=== PATIENT | female | born 1950 | race Caucasian/White ===

== ENCOUNTER → 2022-09-25 | Outpatient (CLI) | payer MEDICARE ==
[~2022-09-25] VITALS: Ht 170 cm; Wt 75.0 kg
[~2022-09-25] MED LIST: AC325T PO; ASPI-875 PO; CALC-787 PO; CATHETER FLUSH 10 ML SYR IVP PRN; CRB200T PO; GARL5000 PO; LORA10CA PO; LUTE10TA PO; MULT-963 PO; NIAC250T17 PO; OMG1KC PO; RED600TA PO; ROSU5TAB PO
[2022-09-25 09:03] VITALS: BP 155/76
--- NOTE | 2022-09-25 11:26 | Cardiology Stress Test Report ---
Stress Test Report Date of Procedure/Referring: Date of Procedure: Sep 25, 2022 PCP Temi Palma MD Admitting Physician Admitting Physician: Attending Physician: Keiry Young MD Baseline Heart Rate: 64 Baseline Blood Pressure: Blood Pressure Systolic: 155 Blood Pressure Diastolic: 76 Vital Signs Date Time Temp Pulse Resp B/P (MAP) Pulse Ox O2 Delivery O2 Flow Rate FiO2 09/25/22 09:03 74 155/76 (102) Baseline Vital Signs Vital Signs Date Time Temp Pulse Resp B/P (MAP) Pulse Ox O2 Delivery O2 Flow Rate FiO2 09/25/22 09:03 74 155/76 (102) Baseline EKG: Baseline EKG: NSR Summary: After explaining the procedure and details to the patient, she signed the consent and was brought to the stress nuclear laboratory. Patient exercised on standard Reymundo protocol, EKG, heart rate and blood pressure were monitored continuously, resting and stress doses of radio tracer were injected, imaging was acquired and reviewed in the short axis, horizontal long axis and vertical long axis views Patient was able to exercise for a total of 10.30 minutes on Reymundo protocol, METs 11.7 Maximum heart rate 117 Maximum blood pressure 134/82 Stress EKG, Minimal nondiagnostic changes Recovery EKG, Return to baseline TID: 1.07 SSS: 7 SDS: 7 EF: 75 Conclusion: 1. Excellent exercise tolerance for 10 minutes and 30 seconds on standard Reymundo protocol, 11.7 METS achieving 81% of maximum expected heart rate 2. Appropriate heart rate and blood pressure response to exercise return to baseline during recovery 3. Nondiagnostic EKG changes with exercise return to baseline during recovery 4. Breast attenuation affecting the quality of the images with questionable ischemia involving the mid to apical anterior wall and anterolateral wall 5. Normal left ventricular size, ejection fraction 75% Copy Copies To 1: TEMI PALMA MD, BASHAR J MD Sep 25, 2022 11:26
== END ==
LOC: CARD 08:15
PROVIDERS: ATTEND Internal Medicine Cardiovascular Disease
DX: I34.0 Nonrheumatic mitral (valve) insufficiency (principal); I10 Essential (primary) hypertension; I25.10 Atherosclerotic heart disease of native coronary artery without angina pectoris
CPT/HCPCS: 78452; 93017; A9502; C8929; 93306

== ENCOUNTER 2022-10-11 07:38 | Day surgery (SDC) | payer MEDICARE ==
[2022-10-11] VITALS (11 sets, daily range): BP systolic 116–161; BP diastolic 61–84
[~2022-10-11] VITALS: Ht 170 cm; Wt 75.5 kg
[~2022-10-11 07:38] MED LIST changes: -CATHETER FLUSH 10 ML SYR IVP PRN
[2022-10-11] MEDS ORDERED: LIDOCAINE 1% INJ 30 ML (XYLOCAINE) VIAL ONE (07:54)
[2022-10-11] MEDS ORDERED: NS IV 1000 ML 1,000 ML ONE (07:54)
[2022-10-11] MEDS ORDERED: HEParin (CATH LAB) 2,000 ML IV ONE (07:54)
[2022-10-11] MEDS ORDERED: NS IV 1000 ML 1,000 ML IV ONE (08:00)
--- NOTE | 2022-10-11 08:41 | Diagnostic Imaging Report ---
Indication: Coronary artery disease. Single AP view of the chest is obtained. There is mild cardiomegaly. Pulmonary vascularity is unremarkable. There is no evidence of pneumothorax or consolidation. Asymmetric density in the upper right hemithorax appears to be due to 1st rib sclerosis. IMPRESSION: Mild cardiomegaly without definite acute abnormality. Consideration could be given to apical lordotic view to assess the right lung apex. Dictated by: Dictated on workstation # [id number]
[2022-10-11 08:54] LABS: HEMATOCRIT 46 % (35-52); HEMOGLOBIN 15.4 g/dL (11.5-16.0); MEAN CORPUSCULAR HEMOGLOBIN 30 pg (25-34); MEAN CORPUSCULAR HGB CONC 34 g/dL (32-36); MEAN CORPUSCULAR VOLUME 90 fL (80-99); MEAN PLATELET VOLUME 9.4 fL (9.0-12.2); PLATELET COUNT 282 10^3/uL (130-400); WHITE BLOOD COUNT 10.6 10^3/uL (4.3-11.0)
[2022-10-11 08:57] LABS: BILIRUBIN,URINE NEGATIVE (NEGATIVE); CLARITY,URINE CLEAR; COLOR,URINE YELLOW; GLUCOSE, URINE (UA) NEGATIVE (NEGATIVE); KETONES,URINE NEGATIVE (NEGATIVE); LEUKOCYTE ESTERASE ,URINE 1+ (NEGATIVE); NITRITE,URINE NEGATIVE (NEGATIVE); PH,URINE 6.5 (5-9); PROTEIN,URINE NEGATIVE (NEGATIVE)
[2022-10-11 09:07] LABS: BACTERIA,URINE NEGATIVE /HPF; WBC,URINE RARE /HPF
[2022-10-11 09:09] LABS: INR 0.9 (0.8-1.4); PROTHROMBIN TIME PATIENT 12.1 SEC (12.2-14.7)
[2022-10-11 09:15] LABS: ALBUMIN 4.5 GM/DL (3.2-4.5); BILIRUBIN,TOTAL 0.3 MG/DL (0.1-1.0); CALCIUM 9.2 MG/DL (8.5-10.1); CREATININE SERUM 0.84 MG/DL (0.60-1.30); TOTAL PROTEIN 7.1 GM/DL (6.4-8.2)
[2022-10-11] MEDS ORDERED: CALC-823 PO (09:16)
[2022-10-11] MEDS ORDERED: ACET325T38 PO (09:16)
[2022-10-11] MEDS ORDERED: CYAN-41 PO (09:16)
[2022-10-11] MEDS ORDERED: CARB200T6 PO (09:16)
[2022-10-11] MEDS ORDERED: ASCO-262 PO (09:16)
[2022-10-11] MEDS ORDERED: L.AC1CAP6 PO (09:16)
[2022-10-11] MEDS ORDERED: OMEG100032 PO (09:16)
[2022-10-11] MEDS ORDERED: ROSU5TAB13 PO (09:16)
[2022-10-11] MEDS ORDERED: ALEN70TA80 PO (09:16)
[2022-10-11] MEDS ORDERED: AMLO-251 PO (09:16)
[2022-10-11] MEDS ORDERED: ASPI-1238 PO (09:16)
[2022-10-11] MEDS ORDERED: MULT-1136 PO (09:16)
[2022-10-11] MEDS ORDERED: GARL500C2 PO (09:16)
[2022-10-11] MEDS ORDERED: CALC-250 PO (09:16)
[2022-10-11] MEDS ORDERED: VIT1CAPS40 PO (09:16)
[2022-10-11] MEDS ORDERED: NITRO DRIP 25000 MCG/D5W 0 ML IV ONE (10:12)
[2022-10-11] MEDS ORDERED: HEParin 1000 UNIT/ML (10ML VIAL) FOR BOLUS ONE (10:12)
[2022-10-11] MEDS ORDERED: MIDAZOLAM 5 MG/5 ML (VERSED) VIAL ONE (10:12)
[2022-10-11] MEDS ORDERED: fentaNYL INJ 100 MCG/2 ML AMP ONE (10:12)
[2022-10-11] MEDS ORDERED: VERAPAMIL 5 MG/2 ML (CALAN) VIAL IV ONE (10:12)
--- NOTE | 2022-10-11 10:13 | Cardiac Procedure Note-CS/ASA ---
Pre-Procedure Note Pre-Op Procedure Note Date of Available H&P: Oct 03, 2022 Date H&P Reviewed: Oct 11, 2022 Time H&P Reviewed: 10:12 History & Physical: H&P Reviewed, Patient Examed, No changes noted Pre-Operative Diagnosis: CAD Conscious Sedation Pre-Proced Time 10:12 ASA Score 3 For ASA 3 and 4: Consider anesthesia and medical clearance. Also, for patients with a history of failed moderate sedation consider anesthesia. Airway Lungs Heart ASA score ASA 1: a normal healthy patient ASA 2: a patient with a mild systemic disease (mid diabetes, controlled hypertension, obesity ASA 3: a patient with a severe systemic disease that limits activity (angina, COPD, prior Myocardial infarction) ASA 4: a patient with an incapacitating disease that is a constant threat to life (CHF, renal failure) ASA 5: a moribund patient not expected to survive 24 hrs. (ruptured aneurysm) ASA 6: a declared brain- patient whose organs are being harvested. For emergent operations, add the letter E after the classification Mallampati Classification Grade 3 Sedation Plan Analgesia, Amnesia, Plan communicated to team members, Discussed options with patient/fam, Discussed risks with patient/fam The patient is an appropriate candidate to undergo the planned procedure, sedation, and anesthesia. The patient immediately re-assessed prior to indication. LUIS DANIEL BACA MD Oct 11, 2022 10:13
--- NOTE | 2022-10-11 11:13 | Discharge Inst-Post CATH ---
Discharge Inst-CATH/EP Problems Reviewed?: Yes Post Cardiac Cath/EP D/C Inst Follow Up/Plan Appointment with Dr. Young's office in 2 to 4 weeks <b>CARDIAC CATH/EP PROCEDURE DISCHARGE INSTRUCTIONS</b> ACTIVITY * Go Home directly and rest. * Limit activity of the leg (or wrist if it was used) for 7 days including aer obics, swimming, jogging, bicycling, etc. * Restrict stair-climbing for 7 days if possible, if not, climb up with your non-cath leg, then bring together on the same step. * Avoid lifting, pushing, pulling or excessive movement of the affected extremi ty for 7 days. * Customary sexual activity may be resumed after 2 days-use caution not to use a position that strains or causes pain to the affected extremity. * No driving for 24 hours. * NO SMOKING. * Avoid straining for bowel movements for 7 days. * Gentle walking on level ground is allowed. * Returning to work will depend on the type of procedure and the results. Your doctor will discuss this with you. CALL YOUR DOCTOR FOR ANY OF THE FOLLOWING: *If bleeding from the puncture site occurs- Apply gentle pressure to site with clean cloth and call your doctor or EMS. * If a knot or lump forms under the skin, increases in size, or causes pain. * If bruising appears to be worsening or moving further down your leg instead of disappearing. * Temperature above 101 F. CARE OF YOUR GROIN INCISION; * Bruising or purple discoloration of the skin near the puncture site is common. * You may shower only, no bathtub bathing for 5 days. Be careful to avoid slipping as your leg may feel stiff. * If a closure device was used on your femoral artery, please see the attached guide regarding care of the device and your leg. * Leave dressing on FOR 24 hours. CARE OF YOUR WRIST INCISION; * Bruising or purple discoloration of the skin near the puncture site is common. * You may shower. * DO NOT submerge wrist. * Leave dressing on FOR 24 hours. LUIS DANIEL YOUNG MD Oct 11, 2022 11:13
[2022-10-11] MEDS ORDERED: PATIENT MAY USE OWN MEDS, ALL PO SCH (11:15)
[2022-10-11] MEDS ORDERED: NS IV 1000 ML 1,000 ML IV SCH (11:15)
--- NOTE | 2022-10-11 12:08 | Cardiac Cath Report ---
Cardiac Cath Report Physician (s)/Director Of Accounts Payable (s) Physician LUIS DANIEL BACA MD Pre-Procedure Diagnosis Pre-Procedure Diagnosis: CAD Post-Procedure Note Procedure Start Date: Oct 11, 2022 Name of Procedure: Left heart catheterization Findings/Procedure Note PROCEDURE NOTE: 72-year-old lady with history of hypertension, hyperlipidemia, had an abnormal stress test, scheduled for cardiac catheterization possible PTCA. After explaining the procedure to the patient, all pros and cons were explained, all questions were answered. The patient signed the consent and then she was placed in the cardiac catheterization laboratory. Groin was prepped in SL fashion local anesthesia was used. Sheath placed in the right femoral artery. Elliot' right and left catheter were used to access the coronary system. Elliot right was prolapsed to the left ventricular cavity, pressure was measured no left ventriculogram was done. At the end of the procedure the sheath was removed. Closure device was used FINDINGS: Hemodynamics LV 138/24, end-diastolic pressure of 24 Aorta 139/62 mean of 92 ANATOMY: Left Main is free of obstructive disease Left Anterior Descending has no significant obstructive disease Left Circumflex has no significant obstructive disease Right Coronary Artery is dominant artery with no significant obstructive disease LV Gram was not done, pressure was measured CONCLUSION: 1. Mild coronary artery disease nonobstructive disease 2. Elevated left ventricular end-diastolic pressure DISCUSSION AND RECOMMENDATION: No intervention is recommended, conservative management Anesthesia Type: Conscious Sedation Estimated blood loss (mL): 15 ml Contrast Amount: 18 ml Total Radiation Dose: 226 mGy Post-Procedure Diagnosis Post-operative diagnosis: Chest pain Coronary artery disease Hypertension Hyperlipidemia LUIS DANIEL BACA MD Oct 11, 2022 12:08
== END 2022-10-11 15:50 | disposition home or self-care (01) ==
LOC: CATH 07:38 → SDC 11:45 → CATH 15:50
PROVIDERS: ATTEND Internal Medicine Cardiovascular Disease
DX: I25.10 Atherosclerotic heart disease of native coronary artery without angina pectoris (principal); I10 Essential (primary) hypertension; Z79.82 Long term (current) use of aspirin; Z79.899 Other long term (current) drug therapy
CPT/HCPCS: 36140; 71045; 80053; 80061; 81000; 85027; 85610; 85730; 87081; 93005; 93458; C1760; C1894; 36415